=== PATIENT | female | born 2005 | race Caucasian/White ===

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

== ENCOUNTER → 2023-11-25 | Outpatient (CLI) | payer OTHER ==
[2023-11-25 13:29] LABS: HEMOGLOBIN A1c 4.7 % (4.0-6.0)
[2023-11-25 13:58] LABS: ALKALINE PHOSPHATASE 66 U/L (46-116); ALT/SGPT 12 U/L (7.0-40); AST/SGOT 10 U/L (<34); BILIRUBIN,TOTAL 0.3 MG/DL (0.3-1.2); BLOOD UREA NITROGEN 11 MG/DL (9-23); CALCIUM LEVEL 9.7 MG/DL (8.5-10.1); CARBON DIOXIDE LEVEL 29 MMOL/L (20-31); CHLORIDE LEVEL 107 MMOL/L (98-107); CREATININE FOR GFR 0.84 MG/DL (0.55-1.30); FREE T4 1.26 NG/DL (0.83-1.43); GLUCOSE, FASTING 84 MG/DL (60-100); POTASSIUM SERUM 4.5 MMOL/L (3.5-5.1); PROLACTIN 10.23 NG/ML; SODIUM LEVEL 138 MMOL/L (136-145); THYROID STIMULATING HORMONE 2.005 uIU/ML (0.48-4.17); TOTAL PROTEIN 7.3 G/DL (5.7-8.2)
[2023-11-29 18:07] LABS: TESTOSTERONE FREE (DIRECT) 8.4 pg/mL (0.1-6.4)
== END ==
LOC: M PLALAB 08:24
PROVIDERS: ATTEND Nurse Practitioner Family
DX: N92.0 Excessive and frequent menstruation with regular cycle (principal)

== ENCOUNTER → 2024-03-20 | Outpatient (REF) | payer OTHER ==
[2024-03-21 11:49] LABS: Trichomonas vaginalis (AMP) NOT DETECTED (NEGATIVE)
[2024-03-21 12:13] LABS: GC DNA AMPLIFICATION NEGATIVE (NEGATIVE)
== END ==
LOC: M SFHCWAGY 09:46
PROVIDERS: ATTEND Nurse Practitioner Family
DX: E28.2 Polycystic ovarian syndrome (principal); R10.2 Pelvic and perineal pain; N94.6 Dysmenorrhea, unspecified; N92.0 Excessive and frequent menstruation with regular cycle; R32 Unspecified urinary incontinence

== ENCOUNTER 2024-06-05 08:04 | Outpatient (RCR) | payer OTHER | END 2024-06-14 | LOC: M PT 08:04 | PROVIDERS: ATTEND Obstetrics & Gynecology | DX: N94.11 Superficial (introital) dyspareunia (principal) ==

== ENCOUNTER 2024-08-28 07:37 | Outpatient (RCR) | payer OTHER | END 2024-09-14 | LOC: M PT 07:37 | PROVIDERS: ATTEND Obstetrics & Gynecology | DX: N94.11 Superficial (introital) dyspareunia (principal) ==

== ENCOUNTER → 2024-11-28 | Outpatient (REF) | payer OTHER ==
[2024-11-30 15:07] LABS: HPV APTIMA Not Detected (Not Detected)
== END ==
LOC: M SFHCWAGY 10:37
PROVIDERS: ATTEND Obstetrics & Gynecology
DX: Z12.4 Encounter for screening for malignant neoplasm of cervix (principal)
CPT/HCPCS: 87070; 87077; 87186; 87624; G0123

== ENCOUNTER → 2024-11-28 | Outpatient (CLI) | payer OTHER | LOC: M WHC 11:35 | PROVIDERS: ATTEND Obstetrics & Gynecology | DX: N94.10 Unspecified dyspareunia (principal); Z53.9 Procedure and treatment not carried out, unspecified reason ==

== ENCOUNTER → 2025-01-05 | Outpatient (REF) | payer OTHER | LOC: M SFHCWAGY 13:23 | PROVIDERS: ATTEND Obstetrics & Gynecology | DX: L29.2 Pruritus vulvae (principal); N89.8 Other specified noninflammatory disorders of vagina ==

== ENCOUNTER → 2025-01-05 | Outpatient (CLI) | payer OTHER | LOC: M PLARAD 09:42 | PROVIDERS: ATTEND Physical Medicine & Rehabilitation | DX: M48.061 Spinal stenosis, lumbar region without neurogenic claudication (principal) ==